=== PATIENT | male | born 1990 | race Two or more races ===

== ENCOUNTER 2017-12-26 07:24 | Emergency (ER) | payer SELFPAY ==
[2017-12-26 07:41] VITALS: BMI 22.6
[2017-12-26] MEDS ORDERED: IBUPROFEN 600 MG TABLET (FP) PO ONE (08:18)
--- NOTE | 2017-12-26 08:41 | PDOC ---
History of Present Illness <NarinderKentrell - Last Filed: 12/26/17 10:54> - History of Present Illness Initial Comments: 27 yo M with no pmh is here after a traumatic knee injury last night at 7 pm while he was playing basketball. He experienced a significant traumatic blow on the lateral aspect of his left knee. He reports that the knee popped out of it' s socket, and then he manually shoved it back in. He was in immense pain. His reports this is the first time she has ever seen him cry. He applied ice and took half a percocet for the injury and pain. He is not able to ambulate on his leg. Denies ankle, or hip pain. Denies chest pain, SOB, or difficulty breathing. Denies urinary or bowel complaints. Allergies: NKA, NKDA Social hx: Denies ciggarette, alcohol, or illicit drug usage. PCP: None <Bayron Foster - Last Filed: 12/26/17 12:49> - General Chief Complaint: Pain, Acute Stated Complaint: DISLOCATION Time Seen by Provider: 12/26/17 08:03 Past History <NarinderKentrell - Last Filed: 12/26/17 10:54> - Past Medical History COPD: No CHF: No - Immunization History Immunization Up to Date: Yes - Suicide/Smoking/Psychosocial Hx Smoking History: Smoker current status UNK Hx Alcohol Use: No Drug/Substance Use Hx: Yes (marijuana) Substance Use Type: None <Bayron Foster - Last Filed: 12/26/17 12:49> - Past Medical History Allergies/Adverse Reactions: Allergies Allergy/AdvReac Type Severity Reaction Status Date / Time No Known Allergies Allergy Verified 12/26/17 10:05 Home Medications: Ambulatory Orders Oxycodone HCl/Acetaminophen [Percocet 5-325 mg Tablet] 1 tab PO Q6H PRN #12 tablet MDD 4 tabs 12/26/17 Review of Systems - Review of Systems Comments:: CONSTITUTIONAL: Absent: fever, no chills, no fatigue EYES: Absent: visual changes ENT: Absent: ear pain, no sore throat CARDIOVASCULAR: Absent: chest pain, no palpitations RESPIRATORY: Absent: cough, no SOB GI: Absent: abdominal pain, no nausea, no vomiting, no constipation, no diarrhea GENITOURINARY: Absent: dysuria, no frequency, no hematuria MUSKULOSKELETAL: Present: Arthralgia Absent: back pain, no myalgia SKIN: Absent: rash NEURO: Absent: headache <Bayron Foster - Last Filed: 12/26/17 12:49> *Physical Exam - Vital Signs Last Vital Signs Temp Pulse Resp BP Pulse Ox 98.6 F 73 16 118/70 98 12/26/17 07:32 12/26/17 07:32 12/26/17 07:32 12/26/17 07:32 12/26/17 09:52 <Kentrell Barcenas - Last Filed: 12/26/17 10:54> - Vital Signs Last Vital Signs Temp Pulse Resp BP Pulse Ox 98.6 F 73 16 118/70 99 12/26/17 07:32 12/26/17 07:32 12/26/17 07:32 12/26/17 07:32 12/26/17 07:32 - Physical Exam Comments: Left Knee: There is significant TTP at the medial aspect of the knee. Negative ant and post drawer tests. Normal and full sensation bilaterally. Decreased strength in Left ankle compared to right. Normal ankle and hip motion. Thready pulse barely palpable in Left Dorsalis peds. 1+ in posterior tibial pulse. 2+ pulses in Right ankle. GENERAL: Well-appearing, well-nourished. No apparent distress. HEENT: Normocephalic, atraumatic. PERRL, EOM intact. CARDIOVASCULAR: Normal S1, S2. Regular rate and rhythm. PULMONARY: Clear to auscultation bilaterally. ABDOMEN: Soft, non-distended, non-tender. EXTREMITIES: Limited motion at Left knee Normal ROM in other 3 extremities. No gross deformities. SKIN: Warm, dry. No rash NEUROLOGICAL: No focal neurological deficits. <Bayron Foster - Last Filed: 12/26/17 12:49> ED Treatment Course - Medications Given in the ED: ED Medications Discontinued Medications Generic Name Dose Route Start Last Admin Trade Name Freq PRN Reason Stop Dose Admin Ibuprofen 600 mg 12/26/17 08:18 12/26/17 08:52 Motrin - PO 12/26/17 08:19 600 mg ONCE ONE Administration <Kentrell Barcenas - Last Filed: 12/26/17 10:54> - RADIOLOGY Radiology Studies Ordered: Category Date Time Status KNEE 3 POS-LEFT [RAD] Stat Radiology 12/26/17 08:13 Ordered <CalinBayron bee - Last Filed: 12/26/17 12:49> Medical Decision Making - Medical Decision Making 27 yo M w/ no sig pmh here after traumatic lateral blow to Left knee. XR showed now bone fractures. This is likely an MCL injury. There could also be other ligamentous injuries. Given thready pulse in Left ankle we will perform a duplex artiogram Plan: duplex artiogram, analgesia, knee immobilizer, re-assess. Duplex showed no arterial injury. Patient was given knee immobilizer, crutches and percocet sent to pharmacy for pain control. Patient will be referred to ortho for FU for MRI. <Bayron Foster - Last Filed: 12/26/17 12:49> *DC/Admit/Observation/Transfer <Kentrell Barcenas - Last Filed: 12/26/17 10:54> - Discharge Dispostion Decision to Admit order: No <Bayron Foster - Last Filed: 12/26/17 12:49> Diagnosis at time of Disposition: Knee injury - Discharge Dispostion Disposition: HOME Condition at time of disposition: Stable - Prescriptions Prescriptions: Oxycodone HCl/Acetaminophen [Percocet 5-325 mg Tablet] 1 tab PO Q6H PRN #12 tablet MDD 4 tabs PRN Reason: Pain - Referrals Referrals: Kentrell Muñoz MD [Staff Physician] - Derek Mendez MD [Staff Physician] - Richar Chew MD [Staff Physician] - - Patient Instructions Printed Discharge Instructions: Meniscal Tear, DI for Knee Sprain, DI for Knee Pain Additional Instructions: Keep your knee in the knee immobilizer at all times. Avoid bearing weight on your leg. Even though your X rays were normal, we cannot rule out ligament injuries. You will need to follow up with an orthopedic surgeon for further evaluation. You will likely need a MRI to fully evaluate the extent of your injury. Call the number provided to make an appointment as soon as possible. If you experience worsening pain, swelling, weakness, numbness, change in color of your leg or foot, or any other concerning symptoms, return to the ER immediately. Print Language: LIBERIAN
--- NOTE | 2017-12-26 10:20 | PDOC ---
Attending Attestation - Resident Resident Name: Bayron Foster - ED Attending Attestation I have performed the following: I have examined & evaluated the patient, The case was reviewed & discussed with the resident, I agree w/resident's findings & plan, Exceptions are as noted - HPI HPI: 12/26/17 10:15 27 M with no PMH presents to ED with L knee pain. Pt states he was playing basketball yesterday when his friend ran into his knee from the side. He states that he felt his knee "pop out", and he had to manually put it back in place. He reports that the pain yesterday wasn't too bad, but today it got much worse. Pt states he is unable to ambulate at all. Denies any numbness in his extremity. Denies any change in color. - Physicial Exam PE: 12/26/17 10:16 GENERAL: Awake, alert, and fully oriented, in no acute distress. HEAD: No signs of trauma EYES: PERRLA, EOMI, sclera anicteric, conjunctiva clear ENT: Auricles normal inspection, hearing grossly normal, nares patent, oropharynx clear without exudates. Moist mucosa NECK: Nontender, no stepoffs, Normal ROM, supple, no lymphadenopathy, JVD, or masses LUNGS: Breath sounds equal, clear to auscultation bilaterally. No wheezes, and no crackles HEART: Regular rate and rhythm, normal S1 and S2, no murmurs, rubs or gallops ABDOMEN: Soft, nontender, normoactive bowel sounds. No guarding, no rebound. No masses EXTREMITIES: + LLE with tenderness medial joint line, no significant effusion, no bony tenderness, no posterior/anterior laxity, + pain with valgus stress, + posterior tibial pulses bilaterally, diminished DP pulse L foot NEUROLOGICAL: Cranial nerves II through XII intact. 5/5 strength and sensation in all extremities, Normal speech, normal gait, normal cerebellar function SKIN: Warm, Dry, normal turgor, no rashes or lesions noted. - Medical Decision Making 12/26/17 10:18 27 M with possible L knee dislocation, now reduced. Palpable posterior tibial pulses bilaterally, but ?slightly diminished DP pulse on L side. - XR to r/o fracture - Arterial US to r/o arterial injury - Pain control 12/26/17 12:27 Arterial US with no sign of vascular injury. XR negative on my read. Pt given knee immobilizer and ortho f/u Pt is well appearing, with normal vitals. Clinically stable for DC at this time. I discussed the physical exam findings, ancillary test results and final diagnoses with the patient. I answered all of the patient's questions. The patient was satisfied with the care received and felt comfortable with the discharge plan and treatment plan. The patient agrees to follow up with the primary care physician within 24-72 hours.
[2017-12-26 12:51] VITALS: BP 127/69; PULSE 68; TEMP 98.9
== END 2017-12-26 12:51 | disposition home or self-care (01) ==
LOC: JER 07:24
DX: S89.82XA Other specified injuries of left lower leg, initial encounter (principal); X50.9XXA Other and unspecified overexertion or strenuous movements or postures, initial encounter; Y93.67 Activity, basketball; Y92.310 Basketball court as the place of occurrence of the external cause; Y99.8 Other external cause status
CPT/HCPCS: 73562-TC-LT-FY; 93926-TC; 99282-25